=== PATIENT | male | born 1995 | race Caucasian/White ===

== ENCOUNTER 2016-08-20 11:00 | Emergency (ER) | payer OTHER ==
[~2016-08-20] VITALS: Ht 167.6 cm; Wt 108.4 kg
[2016-08-20 11:08] VITALS: BP 139/79; PULSE 57; RESP 16; TEMP 98.4; O2SAT 99
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
== END 2016-08-20 11:55 | disposition home or self-care (01) ==
LOC: PHEFT 11:00
DX: G44.319 Acute post-traumatic headache, not intractable (principal); S06.0X0A Concussion without loss of consciousness, initial encounter; Y04.2XXA Assault by strike against or bumped into by another person, initial encounter; Y92.410 Unspecified street and highway as the place of occurrence of the external cause; Y93.55 Activity, bike riding; Y99.8 Other external cause status
CPT/HCPCS: 99283